=== PATIENT | male | born 1950 | race African-American/Black ===

== ENCOUNTER → 2017-05-20 | Outpatient (CLI) | payer MEDICARE ==
[~2017-05-20] MED LIST: MORINGA; MULTI VITAMIN1 EACH PO; PROBIOTIC1 EAC3 PO
--- NOTE | ~2017-05-20 | US13 ---
[facility] A Service of [facility] RADIOLOGY TEXT RESULTS PATIENT: ZUNILDA SAUCEDA LOCATION: [facility] : 50 UNIT #: [id number] AGE: [address]: YANI JEWELL APRN SEX: M ORDER DR: [id number] [place] [id number] O MR#: [id number] Acc #: [id number] NAME: ZUNILDA SAUCEDA : 1950 SEX: M STUDY DATE/TIME: 05/20/2017 11:27 UNIT: [facility] ROOM: STUDY DESCRIPTION: US Aorta Limited Attending Physician: Yani Jewell A.P.R.N. Referring Physician: Yani Jewell A.P.R.N. Ordering Physician: Yani Jewell A.P.R.N. Primary Care Physician: Yani Jewell A.P.R.N. MEDICAL IMAGING REPORT This report is preliminary unless electronic signature is present. EXAM Abdominal aortic ultrasound HISTORY Risk factors for aneurysm FINDINGS B-mode imaging, color Doppler imaging of the infrarenal aorta performed with evidence of a widely patent vessel without evidence of stenosis or occlusion. The mid aortic velocity was 77 cm/second. The proximal infrarenal aorta was 3.6 cm, mid aorta 1.9 cm and distal aorta 2.1 cm. IMPRESSION Small proximal infrarenal abdominal aortic aneurysm 3.6 cm in diameter. Dictated by... Derrell Vogel M.D. THIS IS AN ELECTRONICALLY VERIFIED REPORT Derrell Vogel M.D. at 05/21/2017 4:08 PM FPN/to TD: 05/20/2017 19:25 JOB #: [id number] MEDICAL IMAGING REPORT Page 1 of 1
== END | disposition home or self-care (01) ==
LOC: SGUS 05-01 09:30
DX: Z13.6 Encounter for screening for cardiovascular disorders (principal); I71.4 Abdominal aortic aneurysm, without rupture
CPT/HCPCS: 76775